=== PATIENT | male | born 1945 | race Caucasian/White ===

== ENCOUNTER 2020-10-18 17:20 | Inpatient (IN) | payer MEDICARE, OTHER ==
[~2020-10-18 17:20] MED LIST: ASPIRIN CHEWABL81 MG PO; ATIVAN1 MG PO; COMBIGAN EYE DRO5 ML OU; LASIX20 MG PO; LUPRON DEPOT7.5 MG SC; NEOMYCIN AU; NEURONTIN300 MG PO; PRILOSEC20 MG PO; PRINIVIL10 MG PO; TIMOLOL MALEATE5 M2 OU; TRIAMTERENE-HC1 EACH PO; XALATAN2.5 ML OU
[2020-10-18 19:14] LABS: BASOPHIL 0.2 % (0-2); EOSINOPHIL 0.2 % (0-7); HCT 36.5 % (42.0-52.0); HGB 11.3 g/dl (13.2-18.0); LYMPHOCYTE 3.6 % (15-48); MCV 96.8 fL (78.0-100.0); MONOCYTE 1.2 % (0-12); MPV 9.8 fL (6.0-9.5); NRBC 0; PLT 711 K/uL (150-400); RBC 3.77 M/uL (4.70-6.00); RDW 15.8 % (11.5-14.0); WBC 29.1 K/uL (4.0-10.5)
[2020-10-18 19:16] LABS: NEUTROPHIL 92.9 % (41-80)
[2020-10-18 19:31] LABS: BILIRUBIN NEGATIVE (NEGATIVE); BLOOD NEGATIVE Ery/uL (NEGATIVE); CLARITY CLEAR (CLEAR); COLOR YELLOW (YELLOW); GLUCOSE (U) NORMAL (NORMAL); LEUKOCYTES NEGATIVE Leu/uL (NEGATIVE); NITRITE NEGATIVE (NEGATIVE); PROTEIN NEGATIVE (NEGATIVE); SPECIFIC GRAVITY 1.015 (1.001-1.030); pH 7.5 (5.0-9.0)
[2020-10-18 19:40] LABS: LACTIC ACID 5.3 mmol/L (0.4-1.9)
[2020-10-18 19:53] LABS: ALBUMIN 1.9 g/dL (3.4-5.0); BILIRUBIN - TOTAL 0.7 mg/dL (0.2-1.0); BUN/CREAT RATIO (CALC) 63.6 RATIO; CREATININE 0.44 mg/dL (0.67-1.17); GLOBULIN (CALCULATION) 4.4 g/dL; POTASSIUM 4.3 mmol/L (3.5-5.1); TOTAL PROTEIN 6.3 g/dL (6.4-8.2)
[2020-10-18 20:38] LABS: CORONAVIRUS 2019 SARS-COV-2 POSITIVE (NEGATIVE); INFLUENZA A NAA NEGATIVE (NEGATIVE)
--- NOTE | 2020-10-19 02:37 | NUR ---
PT. ARRIVED ON FLOOR AROUND 0005 IN STRETCHER ACCOMPANIED BY LUNCHROOM FOOD SERVICE SUPERVISOR. PT. HAD HAD A BM AND WAS INCONTINENT OF URINE. PT. WAS CLEANED UP, ALLAN INSERTED, AND CLEAN BLANKETS PUT ON. VS 105/90 ON 10MCG LEVOPHED, 95 NRB, 22 RESP, HR 100, 98.2 A. PTS MOUTH IS FULL OF THICK CRUST. HARD FOR HIM TO TALK AND FOR US TO UNDERSTAND. BY MOANING AND HOLLERING OUT. ORAL CARE, BR[facility] CARE, PERFORMED AT [facility] TIME
[2020-10-19] MEDS ORDERED: LEXAPRO 10MG TA10 MG GT (03:05)
[2020-10-19] MEDS ORDERED: 8 HOUR650 MG GT (03:05)
[2020-10-19] MEDS ORDERED: LIPITOR20 MG GT (03:06)
[2020-10-19] MEDS ORDERED: VITAMIN D310 MC3 GT (03:07)
[2020-10-19] MEDS ORDERED: VENTOLIN (2.5 MG/3 M INH (03:09)
[2020-10-19] MEDS ORDERED: ONDANSETRON ODT4 MG PO (03:09)
--- NOTE | 2020-10-19 05:09 | NUR ---
PT. HAS REFUSED ORAL CARE SEVERAL TIMES TONIGHT, REFUSED OTHER CARE WELL. HE HAS BEEN TURNED Q2HR, AND CLEANED UP WHEN NEEDED. PT. HAS MADE SEVERAL COMMENTS LIKE "I AM DYING", "LEAVE ME ALONE", "DONT DO THAT TO ME", "I DONT WANT A CATHETER". AND SON ARE BOTH PERSISTANT THAT HE IS A FULL CODE. MAY NEED SOME PT FAMILY EDUCATION.
[2020-10-19 06:07] LABS: BASOPHIL 0.1 % (0-2); EOSINOPHIL 0 % (0-7); HCT 31.5 % (42.0-52.0); HGB 9.8 g/dl (13.2-18.0); LYMPHOCYTE 1.7 % (15-48); MCH 30.1 pg (25.0-31.0); MCHC 31.1 g/dL (32.0-36.0); MCV 96.6 fL (78.0-100.0); MONOCYTE 0.8 % (0-12); MPV 9.7 fL (6.0-9.5); NEUTROPHIL 96.4 % (41-80); NRBC 0; PLT 566 K/uL (150-400); RBC 3.26 M/uL (4.70-6.00); RDW 15.9 % (11.5-14.0)
[2020-10-19 06:11] LABS: WBC 31.6 K/uL (4.0-10.5)
[2020-10-19 07:05] LABS: ALBUMIN 1.7 g/dL (3.4-5.0); BILIRUBIN - TOTAL 0.7 mg/dL (0.2-1.0); BUN/CREAT RATIO (CALC) 65.9 RATIO; C-REACTIVE PROTEIN 17.4 mg/dL (<=0.90); CREATININE 0.44 mg/dL (0.67-1.17); GLOBULIN (CALCULATION) 3.3 g/dL; POTASSIUM 4.5 mmol/L (3.5-5.1)
[2020-10-19] MEDS ORDERED: ATIVAN1 MG GT (17:31)
[2020-10-19] MEDS ORDERED: ALL DAY ALLERGY10 M2 GT (17:35)
[2020-10-21 05:19] LABS: BASOPHIL 0.1 % (0-2); EOSINOPHIL 0 % (0-7); HCT 28.2 % (42.0-52.0); LYMPHOCYTE 1.5 % (15-48); MCH 30.2 pg (25.0-31.0); MCHC 31.9 g/dL (32.0-36.0); MCV 94.6 fL (78.0-100.0); MONOCYTE 1.2 % (0-12); MPV 9.7 fL (6.0-9.5); NRBC 0; PLT 425 K/uL (150-400); RBC 2.98 M/uL (4.70-6.00); WBC 22.9 K/uL (4.0-10.5)
[2020-10-21 05:22] LABS: NEUTROPHIL 95.9 % (41-80)
[2020-10-21 05:54] LABS: ALBUMIN 1.3 g/dL (3.4-5.0); BILIRUBIN - TOTAL 0.4 mg/dL (0.2-1.0); BUN/CREAT RATIO (CALC) 86.8 RATIO; CREATININE 0.38 mg/dL (0.67-1.17); GLOBULIN (CALCULATION) 3.5 g/dL; MAGNESIUM 2.2 mg/dL (1.8-2.4); POTASSIUM 3.8 mmol/L (3.5-5.1); TOTAL PROTEIN 4.8 g/dL (6.4-8.2)
--- NOTE | 2020-10-21 09:50 | NUR ---
PATIENTS SATS 80'S ON 100% NON REBREATHER AND 100% HIFLOW NASAL CANNULA. MD AWARE OF CRITICAL CXR THIS AM. , MEHRAN RT, AND THIS RN AT BEDSIDE FOR INTUBATION. TUBE FEEDS HELD. 0855- 5MG VERSED AND 50MG ROCURONIUM PUSHED PER MD ORDERS 0858- INTITIATED LEVOPHED GTT 0905- PATIENT INTUBATED WITH 8.0 ETT. VERSED GTT INITIATED. RESTRAINTS APPLIED. PATIENT BAGGED WITH 100% O2, SATS REMAIN IN 70'S 0930- XRAY CONFIRMED TUBE PLACEMENT. PEEP AND TIDAL VOLUME INCREASED. LAVAGED AND SUCTIONED BY MD AND RT. 0950- BRONCHOSCOPY WITH SUCTION PERFORMED. PATIENT CONTINUES TO DESAT TO 70-80'S. 1000- FAMILY NOTIFIED OF PATIENTS CONDITION VIA PHONE BY . PLAN TO COME SEE PATIENT AND SPEAK WITH IN PERSON. 1200- FAMILY ON UNIT. CONTINUE WITH CARE FOR 24 HOURS. PATIENT CONTINUES TO HAVE LOW SATS, PERFORMED SECOND BRONCHOSCOPY WITH LAVAGE.
--- NOTE | 2020-10-21 14:31 | NUR ---
ALL PATIENTS BELONGINGS, INCLUDING WALLET, CLOTHES, HOME MEDICATIONS RETURNED TO PATIENTS SON PER REQUEST.
--- NOTE | 2020-10-21 18:24 | NUR ---
PATIENT WITH POOR SAO2 <80%. BLOOD PRESSURE UNREADABLE, MAXED ON LEVOPHED. PAIN MEDICATION GIVEN TO TOLERATE VENT, LOWER RR. MD AWARE. NO ORDERS FOR ADDITIONAL PRESSORS AT THIS TIME
--- NOTE | 2020-10-21 21:13 | NUR ---
RT FIRST ON SHIFT TO ASSESS ICU2. PATIENT FROM DOORWAY AUDIBLE AIR FROM MOUTH AND COPIOUS SECRETIONS SUCTIONED AROUND 1944. RT SINCE HAS BEEN WITH PATIENT DUE TO VARRYING VT AND AUDIBLE AIR. CUFF PRESSURES ASSESSED, PATIENT NECK WAS HYPEREXTENDED AND PATIENT MANIPULATED INTO A MORE COMFORTABLE POSITION WITH HELP OF RN. RT NOTED AT BEGINNING OF SHIFT 26@LIP, RN STATED LAST DOCUMENTATION WAS 23@LIP. XRAY OBTAINED AND CURRENTLY WAITING FOR RESULT FOR TUBE CONFIRMATION. SANIA THOMPSON AT BEDSIDE ALSO TO ASSESS PATIENT. NO BREATH SOUNDS HEARD ON LT SIDE OF CHEST. CONTINUE TO MONITOR PATIENT
--- NOTE | 2020-10-21 21:31 | NUR ---
BITE BLOCK PLACED ON LT SIDE DUE TO PATIENT BITING ON TUBE - 2015
--- NOTE | 2020-10-21 21:53 | NUR ---
PER SANIA THOMPSON, ET TUBE IN OK POSITION PER CXR. CONTINUE TO MONITOR PATIENT
--- NOTE | 2020-10-21 23:32 | NUR ---
LATE ENTRY 1999 NURSE ASSESSED PT AFTER RT NOTIFIED OF AUDIBLE AIR SOUNDING LIKE GRUNT CAN BE HEARD FROM OUTSIDE OF ROOM. WITH AUDIBLE AIR OCCASSIONAL LOW TIDAL VOLUMES. ETT NOTED TO BE 26 @ LIP CHANGE FROM PREVIOUS DOCUMENTATION OF 23@LIP. LARRY CAR OPERATOR NOTIFIED, CHEST XRAY OBTAINED FOR POSITION. LARRY CAR OPERATOR EVALUATED PT AT BEDSIDE.
--- NOTE | 2020-10-21 23:34 | NUR ---
LATE ENTRY 2240 PT ET TUBE CHANGED PER JAVA XML DEVELOPER D/T CUFF LEAK AND DECREASING TIDAL VOLUMES. 02 SAT PRIOR TO CHANGE 99%. PT HYPEROXYGENTATED BY RT PRIOR TO ETT EXCHANGE. OLD ETT REMOVED NEW #8 ETT PLACED 26@LIP. POSITIVE COLOR CHANGE, BILAT BREATH SOUND AUSCULATED RETURNED TO PRIOR VENT SETTINGS. O2 SAT 95% CHEST XRAY CONFIRMED POSITIONING.
--- NOTE | 2020-10-22 00:02 | NUR ---
PATIENT REINTUBATED BY QUENTIN LUI AROUND 2234. PATIENT INTUBATED WIHTOUT INCIDENT. RT BAGGED PATIENT WITH 100% AND PEEP VALVE AT 18. REINTUATED WITH #8 ET, 26 @LIP. MAC #4 BLADE. VISUALIZED CONDENSATION IN ET TUBE, CO2 DETECTOR AND AUSCULATATION TO CONFIRM BREATH SOUNDS, IMPROVED AERATION ON LEFT SIDE. CXR ORDERED. PATIENT PLACED BACK ON VENT VT 500, RATE 16, +18 AND 100%.
[2020-10-22 09:59] LABS: HCT 29.6 % (42.0-52.0); HGB 9.2 g/dl (13.2-18.0); MCH 29.9 pg (25.0-31.0); MCHC 31.1 g/dL (32.0-36.0); MCV 96.1 fL (78.0-100.0); MPV 10.2 fL (6.0-9.5); RBC 3.08 M/uL (4.70-6.00); RDW 15.6 % (11.5-14.0)
[2020-10-22 10:00] LABS: WBC 24.2 K/uL (4.0-10.5)
[2020-10-22 10:14] LABS: ALBUMIN 1.4 g/dL (3.4-5.0); BILIRUBIN - TOTAL 0.3 mg/dL (0.2-1.0); CREATININE 0.82 mg/dL (0.67-1.17); GLOBULIN (CALCULATION) 3.2 g/dL; MAGNESIUM 2.3 mg/dL (1.8-2.4); POTASSIUM 4.3 mmol/L (3.5-5.1); TOTAL PROTEIN 4.6 g/dL (6.4-8.2)
--- NOTE | 2020-10-22 18:41 | NUR ---
APPROX 1500, MALLORY,RT WAS IN ROOM WITH PATIENT AND NOTICED DECREASE IN TIDAL VOLUME AND CHECKED CUFF INFLATION AND IT WAS DEFLATED. HE TRIED TO REINFLATE WITH NO SUCCESS AND BEGAN TO BAG PATIENT TO IMPROVE SAT. WAS CALLED TO FLOOR STAT. AFTER ASSESSING PATIENT REINTUBATED PATIENT. #8TUBE 25LIP DETERMINED AFTER EXAMINATION OF CUFF THERE WAS A HOLE. SUCTION WAS REPLACED- SUSPECTED WHAT PUNTURED THE CUFF. PATIENT STABILIZED AND PLACEMENT CONFIRMED BY XRAY.
--- NOTE | 2020-10-22 23:35 | NUR ---
BOTE BLOCK PLACED RT SIDE. PATIENT CLAMPS DOWN WHEN DOING ORAL CARE OR SUCTIONING.
--- NOTE | 2020-10-23 01:30 | NUR ---
PATIENT STARTED THIS SHIFT AT 80%, +14 PEEP. CURRENTLY DECREASED PATIENT TO 50%, +12 PEEP. SAT 100%. PATIENT HAS NOT DESAT SO FAR THIS SHIFT.
[2020-10-23 03:52] LABS: BASOPHIL 0.1 % (0-2); EOSINOPHIL 0 % (0-7); HCT 26.3 % (42.0-52.0); HGB 8.7 g/dl (13.2-18.0); LYMPHOCYTE 1.5 % (15-48); MCH 30.6 pg (25.0-31.0); MCHC 33.1 g/dL (32.0-36.0); MCV 92.6 fL (78.0-100.0); MONOCYTE 0.9 % (0-12); MPV 10.1 fL (6.0-9.5); NEUTROPHIL 96.6 % (41-80); NRBC 0; PLT 397 K/uL (150-400); RBC 2.84 M/uL (4.70-6.00); RDW 15.5 % (11.5-14.0); WBC 22.5 K/uL (4.0-10.5)
[2020-10-23 04:10] LABS: BUN/CREAT RATIO (CALC) 59.7 RATIO; CREATININE 0.62 mg/dL (0.67-1.17); POTASSIUM 3.6 mmol/L (3.5-5.1)
--- NOTE | 2020-10-23 23:34 | NUR ---
PATIENT WEANED THIS SHIFT TO +10 PEEP AND CURRENTLY AT 40% MONITOR SAT 100%. CONTINUE TO MONITOR. PATIENT CONTINUES TO CLAMP DOWN WITH ANY TUBE ADJUSTMENTS OR ATTMEPTS AT ORAL CARE
[2020-10-24 04:59] LABS: BASOPHIL 0.1 % (0-2); EOSINOPHIL 0 % (0-7); HCT 25.7 % (42.0-52.0); HGB 8.5 g/dl (13.2-18.0); LYMPHOCYTE 1.2 % (15-48); MCH 30.1 pg (25.0-31.0); MCHC 33.1 g/dL (32.0-36.0); MCV 91.1 fL (78.0-100.0); MPV 10.5 fL (6.0-9.5); NEUTROPHIL 96.7 % (41-80); NRBC 0; PLT 365 K/uL (150-400); RBC 2.82 M/uL (4.70-6.00); RDW 15.6 % (11.5-14.0)
[2020-10-24 05:01] LABS: WBC 19.3 K/uL (4.0-10.5)
[2020-10-24 05:16] LABS: ALBUMIN 1.2 g/dL (3.4-5.0); BILIRUBIN - TOTAL 0.2 mg/dL (0.2-1.0); BUN/CREAT RATIO (CALC) 61.7 RATIO; CREATININE 0.47 mg/dL (0.67-1.17); GLOBULIN (CALCULATION) 3.4 g/dL; MAGNESIUM 1.9 mg/dL (1.8-2.4); PHOSPHORUS 1.8 mg/dL (2.6-4.7); POTASSIUM 3.7 mmol/L (3.5-5.1); TOTAL PROTEIN 4.6 g/dL (6.4-8.2)
--- NOTE | 2020-10-24 05:54 | NUR ---
PATIENT WEANED TO 30% FIO2 AND +1O PEEP THIS SHIFT, AM ABG OBTAINED. SECRETIONS HAVE TAPERED OFF, SCANT SMALL THICK ALDRICH CHUNKS SUCTIONED FROM ET TUBE THIS AM. ORANGE BITE STICK/BLOCK RT SIDE WITH ET TUBE CENTER, DUE TO PATIENT BITING TUBE WHENEVER REPOSITIONED. CONTINUE TO MONITOR PATIENT
[2020-10-25 04:39] LABS: BASOPHIL 0.1 % (0-2); EOSINOPHIL 0 % (0-7); HCT 22.7 % (42.0-52.0); HGB 7.3 g/dl (13.2-18.0); LYMPHOCYTE 1.6 % (15-48); MCH 30.2 pg (25.0-31.0); MCHC 32.2 g/dL (32.0-36.0); MCV 93.8 fL (78.0-100.0); MONOCYTE 1.1 % (0-12); MPV 10.2 fL (6.0-9.5); NEUTROPHIL 95.7 % (41-80); NRBC 0; PLT 221 K/uL (150-400); RBC 2.42 M/uL (4.70-6.00); WBC 13.2 K/uL (4.0-10.5)
[2020-10-25 05:05] LABS: ALBUMIN 1.8 g/dL (3.4-5.0); BILIRUBIN - TOTAL 0.5 mg/dL (0.2-1.0); BUN/CREAT RATIO (CALC) 68.4 RATIO; CREATININE 0.38 mg/dL (0.67-1.17); GLOBULIN (CALCULATION) 2.5 g/dL; MAGNESIUM 1.9 mg/dL (1.8-2.4); PHOSPHORUS 2.2 mg/dL (2.6-4.7); TOTAL PROTEIN 4.3 g/dL (6.4-8.2)
[2020-10-26 06:11] LABS: BASOPHIL 0.1 % (0-2); EOSINOPHIL 0.1 % (0-7); HCT 26.4 % (42.0-52.0); HGB 8.2 g/dl (13.2-18.0); LYMPHOCYTE 2.7 % (15-48); MCH 29.4 pg (25.0-31.0); MCHC 31.1 g/dL (32.0-36.0); MCV 94.6 fL (78.0-100.0); MONOCYTE 0.7 % (0-12); MPV 10.5 fL (6.0-9.5); NEUTROPHIL 95.2 % (41-80); NRBC 0; PLT 267 K/uL (150-400); RBC 2.79 M/uL (4.70-6.00); RDW 16.6 % (11.5-14.0); WBC 17.8 K/uL (4.0-10.5)
[2020-10-26 06:28] LABS: ALBUMIN 2.4 g/dL (3.4-5.0); BILIRUBIN - TOTAL 0.6 mg/dL (0.2-1.0); BUN/CREAT RATIO (CALC) 56.2 RATIO; CREATININE 0.32 mg/dL (0.67-1.17); POTASSIUM 4.7 mmol/L (3.5-5.1); TOTAL PROTEIN 5.4 g/dL (6.4-8.2)
[2020-10-27 04:27] LABS: BASOPHIL 0.1 % (0-2); EOSINOPHIL 0.1 % (0-7); HCT 23.4 % (42.0-52.0); HGB 7.4 g/dl (13.2-18.0); LYMPHOCYTE 1.7 % (15-48); MCH 29.8 pg (25.0-31.0); MCHC 31.6 g/dL (32.0-36.0); MCV 94.4 fL (78.0-100.0); MONOCYTE 0.8 % (0-12); NRBC 0; PLT 200 K/uL (150-400); RBC 2.48 M/uL (4.70-6.00); RDW 16.8 % (11.5-14.0); WBC 17.2 K/uL (4.0-10.5)
[2020-10-27 04:28] LABS: NEUTROPHIL 96.4 % (41-80)
[2020-10-27 05:25] LABS: CREATININE 0.25 mg/dL (0.67-1.17); POTASSIUM 4.2 mmol/L (3.5-5.1)
[2020-10-27 05:26] LABS: ALBUMIN 2.4 g/dL (3.4-5.0); BILIRUBIN - TOTAL 0.7 mg/dL (0.2-1.0); GLOBULIN (CALCULATION) 2.7 g/dL; TOTAL PROTEIN 5.1 g/dL (6.4-8.2)
--- NOTE | 2020-10-27 06:29 | NUR ---
PT. HAD A FEW EPISODES ON THE VENT WHERE HE WASNT GETTING HIS TV, C/O DIFFICULTY BREATHING, AND WAS TACHYPNEIC. RT AND GLASS SMOOTHER REPORTED TO BEDSIDE, INFLATED CUFF, INLINE SUCTION. PT. RECOVERED. LAST EPISODE OCCURRED AROUND 0400. PT. BEING MONITORED CLOSELY.
--- NOTE | 2020-10-27 06:54 | NUR ---
CENTRAL LINE (RIJ) BEGAN BLEEDING AFTER DRESSING CHANGE AT 0400. PRESSURE APPLIED FOR 10 MINUTE STRAIGH. DRESSING REINFORCED. SITE IS STILL BLEEDING, DUST MOP MAKER NOTIFIED.
--- NOTE | 2020-10-27 15:58 | NUR ---
0950 EXTUBATED BY RT, DR RODRIGUEZ IN THE ROOM WELL INSTRUCTED TO PLACE ON 2L NC, PT SATING 98%, FAMILY NOTIFIED THAT THE PATIENT WAS EXTUBATED
[2020-10-28 04:28] LABS: BASOPHIL 0.1 % (0-2); EOSINOPHIL 0.1 % (0-7); HCT 22.5 % (42.0-52.0); HGB 7.3 g/dl (13.2-18.0); MCH 30.3 pg (25.0-31.0); MCHC 32.4 g/dL (32.0-36.0); MCV 93.4 fL (78.0-100.0); MPV 10.3 fL (6.0-9.5); NRBC 0; PLT 164 K/uL (150-400); RBC 2.41 M/uL (4.70-6.00); RDW 16.8 % (11.5-14.0); WBC 14.6 K/uL (4.0-10.5)
[2020-10-28 04:29] LABS: NEUTROPHIL 94.9 % (41-80)
[2020-10-28 04:55] LABS: CREATININE 0.26 mg/dL (0.67-1.17); GLOBULIN (CALCULATION) 2.8 g/dL; TOTAL PROTEIN 4.8 g/dL (6.4-8.2)
[2020-10-28 04:56] LABS: BILIRUBIN - TOTAL 0.6 mg/dL (0.2-1.0)
--- NOTE | 2020-10-28 15:37 | NUR ---
10/28/20 The [facility] family are considering taking Mr. Villareal home with Hospice. He has home 02, hospital bed, w/c, tube feeding supplies, rw, and 3in1. A referral was made to Hospice. - Sitter service information was provided to the family. - Discharge is anticipated for 10/30.
--- NOTE | 2020-10-29 13:48 | NUR ---
10/29/20 Hospice will accept patient. Rob Villareal was informed and also educated to the EMS DNR form. Rob Villareal will complete the form when he arrives today. Tow Car Driver ED was notified and agreed to meet with Mr. Rob Villareal. - Rob Villareal will meet with Dr. Chun today and make the final decision re: Hospice services.
--- NOTE | 2020-10-30 10:01 | NUR ---
10/30 Mr. Villareal was discharged home with Hospice. EMS reports that patient does not meet criteria fro EMS transport. completed verification of EMS qualifications. Rob Oh was educated to EMS requirement to sign the ABN.
--- NOTE | 2020-10-30 11:56 | NUR ---
pATIENT DISCHARGED HOME VIA EMS TO HOME WITH HOSPICE. cENTRAL LINE AND PERIPERAL IV DCD. ALLAN LEFT IN PLACE. FAMILY AND HOSPICE NOTIFIED OF TIME OF DISCHARGE.
== END 2020-10-30 10:47 | disposition hospice, home (50) | DRG 870 ==
LOC: FER 17:20 → FICU 23:14
PROVIDERS: Allergy & Immunology Allergy; Emergency Medicine; Emergency Medicine Emergency Medical Services; Internal Medicine; Nurse Practitioner; ADMIT Internal Medicine
PROC: 8E0ZXY6 Isolation (ICD-10-PCS; principal; 2020-10-18)
PROC: XW033E5 Introduction of Remdesivir Anti-infective into Peripheral Vein, Percutaneous Approach, New Technology Group 5 (ICD-10-PCS; 2020-10-18)
PROC: 3E033XZ Introduction of Vasopressor into Peripheral Vein, Percutaneous Approach (ICD-10-PCS; 2020-10-19)
PROC: 5A1955Z Respiratory Ventilation, Greater than 96 Consecutive Hours (ICD-10-PCS; 2020-10-21)
PROC: 0BH17EZ Insertion of Endotracheal Airway into Trachea, Via Natural or Artificial Opening (ICD-10-PCS; 2020-10-21)
DX: A41.89 Other specified sepsis (principal); L89.103 Pressure ulcer of unspecified part of back, stage 3; U07.1 COVID-19; J12.82 Pneumonia due to coronavirus disease 2019; J96.01 Acute respiratory failure with hypoxia; I21.4 Non-ST elevation (NSTEMI) myocardial infarction; R65.21 Severe sepsis with septic shock; E43 Unspecified severe protein-calorie malnutrition; J15.20 Pneumonia due to staphylococcus, unspecified; G93.41 Metabolic encephalopathy; Z68.1 Body mass index [BMI] 19.9 or less, adult; G93.1 Anoxic brain damage, not elsewhere classified; B17.9 Acute viral hepatitis, unspecified; R62.7 Adult failure to thrive; Z51.5 Encounter for palliative care; I48.91 Unspecified atrial fibrillation; Z66 Do not resuscitate; I11.0 Hypertensive heart disease with heart failure; I50.9 Heart failure, unspecified; K21.9 Gastro-esophageal reflux disease without esophagitis; E78.5 Hyperlipidemia, unspecified; K56.41 Fecal impaction; F41.9 Anxiety disorder, unspecified; F32.9 Major depressive disorder, single episode, unspecified; I25.10 Atherosclerotic heart disease of native coronary artery without angina pectoris; Z88.0 Allergy status to penicillin; Z87.891 Personal history of nicotine dependence; Z95.5 Presence of coronary angioplasty implant and graft; Z85.46 Personal history of malignant neoplasm of prostate; Z90.49 Acquired absence of other specified parts of digestive tract; Z79.82 Long term (current) use of aspirin
CPT/HCPCS: 31500; 36415; 36600; 70450; 71045; 71275; 80048; 80053; 80202; 81003; 82150; 82728; 82803; 83605; 83615; 83735; 84100; 84145; 84484; 85025; 86140; 87040; 87070; 87077; 87088; 87186; 87205; 92950; 93005; 94002; 94640; 94660; 94760; 96368; C9113; C9399; J0692; J1100; J1170; J1650; J1940; J1956; J2020; J2060; J2185; J2250; J3010; J3370; J7030; J7040; J7050; J7120; P9046; Q9967; U0002